=== PATIENT | male | born 1975 | race Caucasian/White ===

== ENCOUNTER 2025-07-24 12:13 | Emergency (ER) | payer OTHER ==
[~2025-07-24] VITALS: Ht 180.3 cm; Wt 95.3 kg
[2025-07-24 12:22] VITALS: BP 107/79; TEMP 98.3
[2025-07-24] MEDS ORDERED: KETOROLAC TROMETHAMINE INJ 30 MG/ML VIAL ONE (13:15)
[2025-07-24] MEDS ORDERED: CYCLOBENZAPRINE 10 MG TABLET ONE (13:15)
[2025-07-24] MEDS ORDERED: CYCL5TAB PO (13:17)
[2025-07-24] MEDS: CYCLOBENZAPRINE 10 MG TABLET PO ONE (13:19)
[2025-07-24] MEDS: KETOROLAC TROMETHAMINE INJ 30 MG/ML VIAL IM ONE (13:19)
[2025-07-24 13:25] VITALS: O2SAT 99
== END 2025-07-24 13:23 | disposition home or self-care (01) ==
LOC: ER 12:20
DX: M54.50 Low back pain, unspecified (principal); G89.29 Other chronic pain
CPT/HCPCS: 99283; 96372; J1885